=== PATIENT | female | born 1995 | race African-American/Black ===

== ENCOUNTER 2019-02-06 21:45 | Emergency (ER) | payer BC, MEDICAID ==
[~2019-02-06] VITALS: Ht 172.7 cm; Wt 146.0 kg
[2019-02-07] MEDS ORDERED: BACITRACIN ZINC OINT UDPKT TOP ONE (01:30)
[2019-02-07] MEDS ORDERED: LIDOCAINE HCL/PF 1% 10 MG/ML 5ML VIAL IJ ONE (01:30)
[2019-02-07] MEDS ORDERED: HYDROCODONE/ACETAMINOPHEN 10/325MG TABLET PO ONE (01:30)
[2019-02-07] MEDS ORDERED: KETOROLAC 60MG/2ML VIAL IM ONE (02:45)
[2019-02-07 04:00] VITALS: BP 121/75
[2019-02-07] MEDS ORDERED: LORAZEPAM 1MG TABLET PO ONE (04:15)
== END 2019-02-07 05:25 | disposition home or self-care (01) ==
LOC: ER 21:45
DX: S60.512A Abrasion of left hand, initial encounter (principal); S60.511A Abrasion of right hand, initial encounter; M79.5 Residual foreign body in soft tissue; W01.0XXA Fall on same level from slipping, tripping and stumbling without subsequent striking against object, initial encounter; Y93.89 Activity, other specified; Y92.89 Other specified places as the place of occurrence of the external cause; Y99.8 Other external cause status; Z91.013 Allergy to seafood
CPT/HCPCS: 73130; 73560; 73630; 96372; 99284; J1885